=== PATIENT | female | born 1990 | race Asian ===

== ENCOUNTER 2016-12-08 03:06 | Emergency (ER) | payer OTHER ==
[~2016-12-08] VITALS: Ht 165.1 cm; Wt 54.4 kg
[2016-12-08 03:10] VITALS: BP 114/80
[2016-12-08] MEDS ORDERED: Metoclopramide 10mg/2ml Inj IVP ONE (03:15)
[2016-12-08] MEDS ORDERED: Ketorolac 30mg Inj IV ONE (03:15)
[2016-12-08] MEDS ORDERED: DiphenhydrAMINE 50mg/ml Inj IVP ONE (03:15)
--- NOTE | 2016-12-08 03:29 | Emergency Room Report ---
History of Present Illness General Chief Complaint: Headache Source: Patient Present Illness HPI This is a 26-year-old female with a history of migraine headache for many years. She never had any workup done. She said that she can headache partially. His headache started yesterday. Frontal lobe area. Sharp. Not a candidate has nausea and vomiting. Does have photophobia. Usually go see her doctor who told to take Excedrin. Is a first-time that she been to the ER. Denies any other complaint. No trauma. No fever. Allergies: Coded Allergies: No Known Allergies (Unverified , 12/08/16) Patient History Past Medical History: see triage record, old chart reviewed Past Surgical History: none Pertinent Family History: none Social History: Denies: smoking Last Menstrual Period: 4 days ago Now: No Immunizations: other Reviewed Nursing Documentation: PMH: Agreed, PSxH: Agreed Review of Systems Eye: Denies: eye pain, blurred vision ENT: Denies: ear pain, nose congestion, throat swelling Respiratory: Denies: cough, shortness of breath Cardiovascular: Denies: chest pain, palpitations Gastrointestinal: Reports: nausea, vomiting, Denies: abdominal pain, diarrhea Musculoskeletal: Denies: back pain, joint pain Skin: Denies: rash Neurological: Reports: headache, Denies: numbness Endocrine: Denies: increased thirst, increased urine Hematologic/Lymphatic: Denies: easy bruising All Other Systems: negative except mentioned in HPI Physical Exam Vital Signs Date Time Temp Pulse Resp B/P (MAP) Pulse Ox O2 Delivery O2 Flow Rate FiO2 12/08/16 02:59 98.4 94 16 117/70 99 Room Air vitals normal Sp02 EP Interpretation: reviewed, normal General Appearance: well appearing, no apparent distress, alert Head: normocephalic, atraumatic Eyes: bilateral eye PERRL, bilateral eye EOMI ENT: hearing grossly normal, normal pharynx Neck: full range of motion, supple, no meningismus Respiratory: chest non-tender, lungs clear, normal breath sounds Cardiovascular #1: regular rate, rhythm, no murmur Gastrointestinal: normal bowel sounds, non tender, no mass, no organomegaly, no bruit, non-distended Musculoskeletal: back normal, gait/station normal, normal range of motion Psychiatric: mood/affect normal Skin: warm/dry Medical Decision Making Diagnostic Impression: Primary Impression: Headache Qualified Codes: R51 - Headache ER Course Present with headache. Most likely exacerbation of her migraine. No evidence of mass, meningitis or bleed. We'll discharge home. she is pain-free now. CT/MRI/US Diagnostic Results CT/MRI/US Diagnostic Results : Imaging Test Ordered: CT head Impression negative per radiology Last Vital Signs Date Time Temp Pulse Resp B/P (MAP) Pulse Ox O2 Delivery O2 Flow Rate FiO2 12/08/16 03:10 98.4 96 16 114/80 99 Room Air Status: improved Disposition: HOME, SELF-CARE Condition: Stable Scripts Naproxen* (NAPROSYN*) 500 Mg Tablet 500 MG ORAL TWICE A DAY, #30 TAB Prov: FATIMAH BUSCH M.D. 12/08/16 Amitriptyline HCl (ELAVIL*) 25 Mg Tablet 25 MG ORAL BEDTIME, #30 TAB Prov: FATIMAH BUSCH M.D. 12/08/16 Patient Instructions: Migraine Headache Additional Instructions: Followup with your DrKelly in 7 days. You may benefit from a referral to see a neurologist. Return if symptom worsen. FATIMAH BUSCH M.D. Dec 08, 2016 03:29
[2016-12-08] MEDS ORDERED: AMITRIPTYLINE25 MG ORAL (04:04)
[2016-12-08] MEDS ORDERED: NAPROSYN500 M1 ORAL (04:04)
[2016-12-08 04:57] VITALS: BP 108/66
[2016-12-08 05:30] VITALS: BP 108/66
--- NOTE | 2016-12-08 09:13 | Diagnostic Imaging Report ---
Indication: Headache Technique: Continuous helical CT scanning of the head was performed without intravenous contrast material. Axial and coronal 5 mm sections were generated. Radiation dose was minimized using automated exposure control Dose: Total Dose Length Product - DLP [address] Dose Index - CTDIvol(s) 70.38 mGy. Comparison: None Findings: The ventricular system is normal in size and configuration. There is no shift of midline structures. No abnormal extra-axial fluid collections are noted. There is no evidence of intracerebral bleeding. No other abnormal high or low density areas are noted within the brain. Intact calvarium. Visualized orbits and sinuses are unremarkable. Impression: Normal CT scan of the head without contrast material. This agrees with the preliminary interpretation provided overnight by [facility] service. The CT scanner at [facility] is accredited by the [employer] and the scans are performed using protocols designed to limit radiation exposure to as low as reasonably achievable to attain images of sufficient resolution adequate for diagnostic evaluation.
== END 2016-12-08 05:30 | disposition home or self-care (01) ==
LOC: EDBD 03:06 → EMR 03:30
DX: R51 Headache (principal); R11.2 Nausea with vomiting, unspecified; Z86.69 Personal history of other diseases of the nervous system and sense organs
CPT/HCPCS: 70450; 96361; 96374; 96375; 99284; J1200; J1885; J2765